=== PATIENT | male | born 1995 | race Caucasian/White ===

== ENCOUNTER 2016-12-02 19:42 | Emergency (ER) | payer BC, OTHER ==
[~2016-12-02] VITALS: Ht 182.9 cm; Wt 74.8 kg
[2016-12-02] MEDS ORDERED: NS IV 1000 ML 1,000 ML IV ONE (19:53)
[2016-12-02 20:22] LABS: BASOPHILS % (AUTO) 0 % (0-10); EOSINOPHILS # (AUTO) 0.2 10^3/uL (0.0-0.3); EOSINOPHILS % (AUTO) 2 % (0-10); LYMPHOCYTES # (AUTO) 1.9 X 10^3 (1.0-4.0); LYMPHOCYTES % (AUTO) 23 % (12-44); MEAN CORPUSCULAR HEMOGLOBIN 31 PG (25-34); MEAN CORPUSCULAR HGB CONC 36 G/DL (32-36); MEAN CORPUSCULAR VOLUME 87 FL (80-99); MEAN PLATELET VOLUME 10.2 FL (7.4-10.4); MONOCYTES # (AUTO) 0.8 X 10^3 (0.0-1.0); MONOCYTES % (AUTO) 10 % (0-12); NEUTROPHILS # (AUTO) 5.2 X 10^3 (1.8-7.8); NEUTROPHILS % (AUTO) 64 % (42-75); PLATELET COUNT 258 10^3/uL (130-400); RED BLOOD COUNT 4.66 10^6/uL (4.35-5.85); RED CELL DISTRIBUTION WIDTH 11.9 % (10.0-14.5)
[2016-12-02 20:30] LABS: INR 1.2 (0.8-1.4); PROTHROMBIN TIME PATIENT 15.3 SEC (12.2-14.7)
--- NOTE | 2016-12-02 20:39 | ED General ---
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 Pt. co-workers were concerned that he got to hot and attempted to cool him down with water prior to EMS arrival. Nursing Sepsis Screen: No Definite Risk Source of Information: Patient Exam Limitations: No Limitations History of Present Illness Time Seen by Provider: 19:44 Allergies and Home Medications Allergies Coded Allergies: No Known Drug Allergies (Unverified , 12/02/16) Past [id number] Hx Patient Social History Alcohol Use: Denies Use Recreational Drug Use: No Smoking Status: Unknown if Ever Smoked Recent Foreign Travel: No Contact w/Someone Who Travel: No Recent Infectious Disease Expo: No Recent Hopitalizations: No Seasonal Allergies Seasonal Allergies: No Physical Exam Vital Signs Vital Sign - Last 12Hours 12/02/16 19:44 Temp 97.6 Pulse 88 Resp 14 B/P (MAP) 124/85 Pulse Ox 98 O2 Delivery Room Air Capillary Refill : Less Than 3 Seconds Progress/Results/Core Measures Results/Orders Lab Results Laboratory Tests Test 12/02/16 19:47 12/02/16 20:53 Range/Units White Blood Count 8.0 4.3-11.0 10^3/uL Red Blood Count 4.66 4.35-5.85 10^6/uL Hemoglobin 14.5 13.3-17.7 G/DL Hematocrit 41 40-54 % Mean Corpuscular Volume 87 80-99 FL Mean Corpuscular Hemoglobin 31 25-34 PG Mean Corpuscular Hemoglobin Concent 36 32-36 G/DL Red Cell Distribution Width 11.9 10.0-14.5 % Platelet Count 258 130-400 10^3/uL Mean Platelet Volume 10.2 7.4-10.4 FL Neutrophils (%) (Auto) 64 42-75 % Lymphocytes (%) (Auto) 23 12-44 % Monocytes (%) (Auto) 10 0-12 % Eosinophils (%) (Auto) 2 0-10 % Basophils (%) (Auto) 0 0-10 % Neutrophils # (Auto) 5.2 1.8-7.8 X 10^3 Lymphocytes # (Auto) 1.9 1.0-4.0 X 10^3 Monocytes # (Auto) 0.8 0.0-1.0 X 10^3 Eosinophils # (Auto) 0.2 0.0-0.3 10^3/uL Basophils # (Auto) 0.0 0.0-0.1 10^3/uL Prothrombin Time 15.3 H 12.2-14.7 SEC INR Comment 1.2 0.8-1.4 Activated Partial Thromboplast Time 32 24-35 SEC Sodium Level 142 135-145 MMOL/L Potassium Level 3.2 L 3.6-5.0 MMOL/L Chloride Level 109 H 98-107 MMOL/L Carbon Dioxide Level 19 L 21-32 MMOL/L Anion Gap 14 5-14 MMOL/L Blood Urea Nitrogen 11 7-18 MG/DL Creatinine 1.24 0.60-1.30 MG/DL Estimat Glomerular Filtration Rate > 60 BUN/Creatinine Ratio 9 0-20 Glucose Level 83 70-105 MG/DL Calcium Level 8.8 8.5-10.1 MG/DL Total Bilirubin 0.8 0.1-1.0 MG/DL Aspartate Amino Transf (AST/SGOT) 26 5-34 U/L Alanine Aminotransferase (ALT/SGPT) 31 0-55 U/L Alkaline Phosphatase 74 40-136 U/L Total Creatine Kinase 178 30-200 U/L Troponin I < 0.30 <0.30 NG/ML Total Protein 6.7 6.4-8.2 GM/DL Albumin 4.0 3.2-4.5 GM/DL Urine Color YELLOW Urine Clarity CLEAR Urine pH 6 5-9 Urine Specific [place] 1.020 1.016-1.022 Urine Protein 1+ H NEGATIVE Urine Glucose (UA) NEGATIVE NEGATIVE Urine Ketones 1+ H NEGATIVE Urine Nitrite NEGATIVE NEGATIVE Urine Bilirubin NEGATIVE NEGATIVE Urine Urobilinogen NORMAL NORMAL MG/DL Urine Leukocyte Esterase 1+ H NEGATIVE Urine RBC (Auto) NEGATIVE NEGATIVE Urine RBC NONE /HPF Urine WBC 0-2 /HPF Urine Squamous Epithelial Cells RARE /HPF Urine Crystals NONE /LPF Urine Bacteria NONE /HPF Urine Casts NONE /LPF Urine Mucus MODERATE H /LPF Urine Culture Indicated NO My Orders Orders - CHAVA MEJIA Saline Lock/Iv-Start (12/02/16 19:53) Ekg Tracing (12/02/16 19:53) Cbc With Automated Diff (12/02/16 19:53) Comprehensive Metabolic Panel (12/02/16 19:53) Creatine Kinase (12/02/16 19:53) Protime With Inr (12/02/16 19:53) Partial Thromboplastin Time (12/02/16 19:53) Troponin I (12/02/16 19:53) Ua Culture If Indicated (12/02/16 19:53) Ns Iv 1000 Ml (Sodium Chloride 0.9%) (12/02/16 19:53) Medications Given in ED Current Medications Medications Dose Ordered Sig/Azeem Route Start Time Stop Time Status Last Admin Dose Admin Sodium Chloride 1,000 ml @ 0 mls/hr Q0M ONCE IV 12/02/16 19:53 12/02/16 19:55 DC 12/02/16 20:22 0 MLS/HR Vital Signs/I&O Vital Sign - Last 12Hours 12/02/16 19:44 Temp 97.6 Pulse 88 Resp 14 B/P (MAP) 124/85 Pulse Ox 98 O2 Delivery Room Air Blood Pressure Mean: 98 Departure Impression Impression: Primary Impression: Heat exhaustion, unspecified Disposition: HOME, SELF-CARE Condition: Improved Departure-Patient Inst. Decision time for Depature: 21:26 Referrals: LENA CHAU MD (PCP/Family) Primary Care Physician Patient Instructions: Heat Exhaustion and Heat Stroke (DC) Add. Discharge Instructions: All discharge instructions reviewed with patient and/or family. Voiced understanding. Tylenol extra strength [id number] as directed for pain or headache. Ibuprofen 800 mg by mouth every 8 hours as needed for pain or headache. Drink plenty of fluids. Alternate water and Gatorade/powerade. Avoid the heat 2-3 days. Follow-up with your family practitioner for recheck Monday, call first thing Monday morning for appointment time. Return to the emergency department for worsened cramping, headache, dizziness, changes in behavior, confusion, shortness of air, chest pain, or any other concerns. Work/School Note: Work Release Form Date Seen in the Emergency Department: Dec 02, 2016 Return to Work: Dec 04, 2016 Other Restrictions Listed Below: avoid the heat for 2-3 days CHAVA MEJIA Dec 02, 2016 20:39
[2016-12-02 20:40] LABS: ALANINE AMINOTRANSFERASE 31 U/L (0-55); ANION GAP 14 MMOL/L (5-14); ASPARTATE AMINO TRANSFERASE 26 U/L (5-34); BILIRUBIN,TOTAL 0.8 MG/DL (0.1-1.0); BLOOD UREA NITROGEN 11 MG/DL (7-18); BUN/CREATININE RATIO 9 (0-20); CALCIUM 8.8 MG/DL (8.5-10.1); CARBON DIOXIDE 19 MMOL/L (21-32); CHLORIDE 109 MMOL/L (98-107); CREATINE KINASE 178 U/L (30-200); CREATININE SERUM 1.24 MG/DL (0.60-1.30); GFR ESTIMATED > 60; GLUCOSE 83 MG/DL (70-105); HEMOLYSIS 16 (-100-29); ICTERUS 0.9 (-100-1.9); LIPEMIA 1 (-100-49); POTASSIUM 3.2 MMOL/L (3.6-5.0); SODIUM 142 MMOL/L (135-145); TOTAL PROTEIN 6.7 GM/DL (6.4-8.2)
[2016-12-02 20:50] LABS: TROPONIN I < 0.30 NG/ML (<0.30)
[2016-12-02 21:01] LABS: BILIRUBIN,URINE NEGATIVE (NEGATIVE); KETONES,URINE 1+ (NEGATIVE); LEUKOCYTE ESTERASE ,URINE 1+ (NEGATIVE); NITRITE,URINE NEGATIVE (NEGATIVE); PH,URINE 6 (5-9); PROTEIN,URINE 1+ (NEGATIVE); UROBILINOGEN,URINE NORMAL (NORMAL)
[2016-12-02 21:13] LABS: SQUAMOUS EPITHELIAL CELL,UR RARE /HPF; WBC,URINE 0-2 /HPF
[2016-12-02 21:53] VITALS: BP 125/73
== END 2016-12-02 21:53 | disposition home or self-care (01) ==
LOC: EDUNIT# 19:42 → ER 19:45
DX: T67.5XXA Heat exhaustion, unspecified, initial encounter (principal); X30.XXXA Exposure to excessive natural heat, initial encounter; Y92.89 Other specified places as the place of occurrence of the external cause
CPT/HCPCS: 36415; 80053; 81000; 82550; 84484; 85025; 85610; 85730; 93005